=== PATIENT | female | born 1990 | race Caucasian/White ===

== ENCOUNTER → 2016-06-18 | Outpatient (CLI) | payer OTHER ==
[2016-06-18 13:45] LABS: BASO % 0.3 % (0.0-1.0); EOS # 0.1 K/mm3 (0.0-0.50); EOS % 0.9 % (0.0-3.0); LARGE UNSTAINED CELL # 0.1 K/mm3 (0.0-0.4); LYMPH # 2.1 K/mm3 (1.5-6.5); LYMPH % 16.2 % (24.0-44.0); MEAN CORPUSCULAR HEMOGLOBIN 30.3 pg (27.0-33.0); MEAN CORPUSCULAR HGB CONC 33.2 g/dl (32.0-36.5); MEAN CORPUSCULAR VOLUME 91.5 fl (80.0-96.0); MONO # 0.6 K/mm3 (0.0-0.8); MONO % 4.8 % (0.0-5.0); NEUTROPHILS # 9.3 K/mm3 (1.8-7.7); NEUTROPHILS % 76.8 % (36.0-66.0); PLATELET COUNT, AUTOMATED 274 k/mm3 (150-450); RED CELL DISTRIBUTION WIDTH 13.3 % (11.5-14.5); WHITE BLOOD COUNT 12.2 K/mm3 (4.0-10.0)
[2016-06-19 14:13] LABS: SJOGREN'S ANTI SS-A <0.2 AI (0.0-0.9); SJOGREN'S ANTI SS-B <0.2 AI (0.0-0.9)
== END ==
LOC: M LAB 11:56
PROVIDERS: ATTEND Internal Medicine Rheumatology
DX: M35.9 Systemic involvement of connective tissue, unspecified (principal); Z79.899 Other long term (current) drug therapy

== ENCOUNTER → 2016-08-10 | Outpatient (CLI) | payer OTHER ==
--- NOTE | 2016-08-10 20:53 | ECGEPIP ---
Stationary ECG Study [facility] Test Date: 2016-08-10 Pat Name: RHONDA CABRERA Department: Room: - Gender: F [employer]: : 1990 Requested By: JIMENEZ Corbett Order Number: [id number] Reading MD: Angel Sanchez Measurements Intervals [place] Rate: 90 P: 28 AL: 131 QRS: 77 QRSD: 103 T: 37 QT: 373 QTc: 458 Interpretive Statements SINUS RHYTHM POSSIBLE LEFT ATRIAL ENLARGEMENT Nonspecific ST/T-wave abnormality No prior tracing for comparison. Clinical correlation advised Electronically Signed On 08-10-2016 20:53:30 EDT by Angel Sanchez
== END ==
LOC: M EKG 13:19
PROVIDERS: ATTEND Obstetrics & Gynecology
DX: I49.3 Ventricular premature depolarization (principal); R94.31 Abnormal electrocardiogram [ECG] [EKG]

== ENCOUNTER → 2016-10-30 | Outpatient (REF) | payer OTHER ==
[2016-10-30 13:59] LABS: REASON FOR REVIEW COMPREHENSIVE REVIEW
[2016-10-30 14:49] LABS: ERYTHROCYTE SEDIMENTATION RATE 51 mm/hr (0-20)
== END ==
LOC: M LAB REF 13:16
PROVIDERS: ATTEND Internal Medicine Medical Oncology
DX: D72.829 Elevated white blood cell count, unspecified (principal)

== ENCOUNTER → 2016-10-30 | Outpatient (REF) | payer OTHER | LOC: M LAB REF 13:13 | PROVIDERS: ATTEND Nurse Practitioner Family | DX: D72.829 Elevated white blood cell count, unspecified (principal) ==

== ENCOUNTER → 2017-04-24 | Outpatient (CLI) | payer OTHER | LOC: M PAIN 10:15 | DX: M79.7 Fibromyalgia (principal); G43.909 Migraine, unspecified, not intractable, without status migrainosus; M32.9 Systemic lupus erythematosus, unspecified; M41.9 Scoliosis, unspecified; E72.12 Methylenetetrahydrofolate reductase deficiency; F43.10 Post-traumatic stress disorder, unspecified; G25.81 Restless legs syndrome; M35.7 Hypermobility syndrome; I73.00 Raynaud's syndrome without gangrene; L23.81 Allergic contact dermatitis due to animal (cat) (dog) dander; Z88.8 Allergy status to other drugs, medicaments and biological substances; Z79.82 Long term (current) use of aspirin; Z79.899 Other long term (current) drug therapy; Z87.891 Personal history of nicotine dependence | CPT/HCPCS: G0463 ==

== ENCOUNTER 2018-02-17 07:19 | Day surgery (SDC) | payer OTHER ==
[2018-02-17] MEDS: NS 1,000 ML IV (06:00)
[2018-02-17] MEDS ORDERED: PROPOFOL 500 MG/50 ML VIAL As Ordered (08:59)
[2018-02-17] MEDS ORDERED: LIDOCAINE 2% INJ 100 MG/5 ML SDV (FOR ANES.) As Ordered (08:59)
== END 2018-02-17 09:46 | disposition home or self-care (01) ==
LOC: M OPP 07:19
DX: K62.5 Hemorrhage of anus and rectum (principal); R19.7 Diarrhea, unspecified; K64.8 Other hemorrhoids; R00.8 Other abnormalities of heart beat; I25.2 Old myocardial infarction; I95.9 Hypotension, unspecified; I37.1 Nonrheumatic pulmonary valve insufficiency; K58.9 Irritable bowel syndrome, unspecified; K76.0 Fatty (change of) liver, not elsewhere classified; K21.9 Gastro-esophageal reflux disease without esophagitis; R12 Heartburn; E72.12 Methylenetetrahydrofolate reductase deficiency; M41.9 Scoliosis, unspecified; M79.7 Fibromyalgia; M32.9 Systemic lupus erythematosus, unspecified; M35.7 Hypermobility syndrome; F41.9 Anxiety disorder, unspecified; G43.909 Migraine, unspecified, not intractable, without status migrainosus; F43.10 Post-traumatic stress disorder, unspecified; R56.9 Unspecified convulsions; G47.30 Sleep apnea, unspecified; K51.90 Ulcerative colitis, unspecified, without complications; Z97.8 Presence of other specified devices; Z87.891 Personal history of nicotine dependence; Z88.1 Allergy status to other antibiotic agents; Z88.8 Allergy status to other drugs, medicaments and biological substances; Z79.899 Other long term (current) drug therapy; Z80.41 Family history of malignant neoplasm of ovary; Z80.7 Family history of other malignant neoplasms of lymphoid, hematopoietic and related tissues
CPT/HCPCS: 45380